=== PATIENT | male | born 1980 | race American Indian/Alaskan Native ===

== ENCOUNTER 2018-09-11 14:09 | Emergency (ER) | payer SELFPAY ==
[2018-09-11 14:33] VITALS: BP 150/82
--- NOTE | 2018-09-11 14:34 | Emergency Department Report ---
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 Due to findings the following was ordered: ED Disposition for MSE Condition: Stable
--- NOTE | 2018-09-11 15:07 | Emergency Department Report ---
Minor Respiratory - HPI Chief Complaint: Upper Respiratory Infection Stated Complaint: FLU SYMPTOMS Time Seen by Provider: 09/11/18 14:34 Duration: Today (body aches conditions who) Pain Location: Other (body aches) Severity: moderate (5/10) Minor Respiratory: Yes Rhinorrhea (nasal congestion), Yes Able to Tolerate Fluids, Yes Cough (dry cough), No Sore Throat, No Ear Pain, No Sick Contacts, No Hemoptysis, No Chest Pain, No Shortness of Breath, No Fever (chills) Other History: This is a 38-year-old male here report that he is having body ac hes, nasal congestion and chills times one week and symptoms have been worsening over the last 2 days. No [id number] medication taken. 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 Denies any nausea vomiting, shortness of breath or chest pain. Pain is achy and intermittent and no alleviating or exacerbating factors ED Review of Systems ROS: Stated complaint: FLU SYMPTOMS Other details as noted in HPI Constitutional: chills Eyes: denies: eye discharge ENT: congestion. denies: ear pain, throat pain, epistaxis Respiratory: cough. denies: shortness of breath, wheezing Cardiovascular: denies: chest pain, palpitations, edema, syncope Gastrointestinal: denies: abdominal pain, nausea, vomiting Skin: denies: rash Neurological: denies: headache ED Past Medical Hx - Past Medical History Previous Medical History?: No - Surgical History Past Surgical History?: No - Family History Family history: hypertension - Social History Smoking Status: Current Every Day Smoker Substance Use Type: Alcohol - Medications Home Medications: Home Medications Medication Instructions Recorded Confirmed Last Taken Type Amoxicillin/K Clav Tab [Augmentin 1 tab PO Q12HR #20 tab 09/11/18 Unknown Rx 875MG TAB] Cetirizine HCl [ZyrTEC] 10 mg PO QAM 14 Days #14 capsule 09/11/18 Unknown Rx Fluticasone [Flonase] 1 spray NS QDAY 14 Days #1 bottle 09/11/18 Unknown Rx Ibuprofen [Motrin] 800 mg PO Q8HR PRN #12 tablet 09/11/18 Unknown Rx methylPREDNISolone [Medrol Dose 4 mg PO DAILY #1 tab.ds.pk 09/11/18 Unknown Rx Angel] Minor Respiratory Exam - Exam General: Vital signs noted. No distress. Alert and acting appropriately. HEENT: Yes Moist Mucous Membranes (uvula midline abdomen he was patent), Yes Rhinorrhea (congested with erythema and clear drainage), No Pharyngeal Erythema, No Pharyngeal Exudates, No Conjuctival Injection, No Frontal Tenderness, No Maxillary Tenderness Ear: Neither TM Bulge (bilateral TM congested), Neither TM Erythema, Neither EAC Pain, Neither EAC Discharge Neck: Yes Supple (full range of motion and no C-spine tenderness), No Adenopathy Lungs: Yes Good Air Exchange, Yes Wheezes, Yes Cough (dry cough), No Ronchi, No Stridor, No Labored Respirations, No Retractions, No Use of Accessory Muscles, No Other Abnormal Lung Sounds Heart: Yes Regular (tachycardic at 107), No Murmur Abdomen: Yes Normal Bowel Sounds (in all quadrants), No Tenderness (nontender profit in all quadrants) Skin: No Rash, No Edema Neurologic: Alert and oriented 3, no deficits. Musculoskeletal: Unremarkable. No cce. + 2 pulses in all extremities, no neurovascular compromise ED Course Vital Signs 09/11/18 14:31 Temperature 97.9 F Pulse Rate 107 H Respiratory 18 Rate Blood Pressure 150/82 O2 Sat by Pulse 99 Oximetry Vital Signs 09/11/18 09/11/18 14:31 15:11 Temperature 97.9 F Pulse Rate 107 H 88 Respiratory 18 Rate Blood Pressure 150/82 O2 Sat by Pulse 99 Oximetry - Reevaluation(s) Reevaluation #1: 09/11/18 15:12 Patient stable throughout ED course with no complaints. ED Medical Decision Making - Medical Decision Making This is a 38-year-old male patient here for cough and cold symptoms. Patient found to have acute sinusitis. Patient had influenza A and B done. I discussed with patient his diagnosis and treatment plan he was understanding. Patient discharged from the ED in stable condition. Photosensitivity is afebrile and given prescription for Zyrtec, Flonase, Augmentin, Medrol Dosepak and ibuprofen. Critical care attestation.: If time is entered above; I have spent that time in minutes in the direct care of this critically ill patient, excluding procedure time. ED Disposition Clinical Impression: Cough in adult patient Acute sinusitis Qualifiers: Sinusitis location: unspecified location Recurrence: not specified as recurrent Qualified Code(s): J01.90 - Acute sinusitis, unspecified Disposition: DC-01 TO HOME OR SELFCARE Is pt being admited?: No Does the pt Need Aspirin: No Condition: Stable Instructions: Sinusitis (ED), Acute Cough (ED) Additional Instructions: Please take antibiotic as prescribed Follow-up with primary care physician in 3 days Take Motrin as prescribed for pain but take with food as can cause irritation to stomach lining Take Zyrtec and Flonase for congestion. If your condition worsens to include difficulty breathing, swallowing, chest pain, nausea and vomiting and fever does not relief with Motrin please return to the emergency room TESS. Gargle with warm salt water and this will help to relieve sore throat Prescriptions: Amoxicillin/K Clav Tab [Augmentin 875MG TAB] 1 tab PO Q12HR #20 tab Cetirizine HCl [ZyrTEC] 10 mg PO QAM 14 Days #14 capsule Fluticasone [Flonase] 1 spray NS QDAY 14 Days #1 bottle Ibuprofen [Motrin] 800 mg PO Q8HR PRN #12 tablet PRN Reason: pain methylPREDNISolone [Medrol Dose Angel] 4 mg PO DAILY #1 tab.ds.pk Referrals: [facility] [Outside] - 3-5 Days Forms: Work/School Release Form(ED)
== END 2018-09-11 15:27 | disposition home or self-care (01) ==
LOC: ED 14:09
DX: J01.90 Acute sinusitis, unspecified (principal); F17.200 Nicotine dependence, unspecified, uncomplicated
CPT/HCPCS: 87400

== ENCOUNTER 2021-06-23 23:32 | Emergency (ER) | payer SELFPAY ==
[2021-06-23 23:43] VITALS: BP 130/91
[2021-06-24] MEDS ORDERED: IBUPROFEN 600 MG TAB PO ONE (00:30)
[2021-06-24] MEDS ORDERED: ONDANSETRON 4 MG ODT TAB PO ONE (00:30)
[2021-06-24] MEDS ORDERED: BUTALB/ACETAMINOPHEN/CAFFEINE TAB PO ONE (00:30)
--- NOTE | 2021-06-24 01:23 | Cat Scan Report ---
CT HEAD WITHOUT CONTRAST INDICATION / CLINICAL INFORMATION: headache. TECHNIQUE: All CT scans at this location are performed using CT dose reduction for ALARA by means of automated exposure control. COMPARISON: None available. FINDINGS: BRAIN PARENCHYMA: No acute intracranial hemorrhage. No evidence of recent infarct. No mass effect or midline shift. VENTRICULAR SYSTEM/EXTRA-AXIAL SPACES: Ventricles are normal for age. No extra-axial fluid collection . ORBITS: Normal as visualized. SKELETAL SYSTEM/SOFT TISSUES: Normal bones and soft tissues. PARANASAL SINUSES/MASTOID AIR CELLS: No significant abnormality. ADDITIONAL FINDINGS: None. IMPRESSION: 1. No acute intracranial abnormality. Signer Name: Germán Lind MD Signed: 06/24/2021 1:19 AM Workstation Name: [id number]
--- NOTE | 2021-06-24 01:34 | Emergency Department Report ---
ED Headache HPI - General Chief Complaint: Headache Stated Complaint: HEADACHES Source: patient - History of Present Illness Initial Comments: Patient is a 41-year-old -[place] male with no past medical history presents to the ED with complaint of acute onset persistent severe right temporal headache with nausea and vomiting for the last 1 week, worse in the last 2 days. Patient states that the headache has been intermittent but severe when present. Patient states that when present he also experiences persistent nausea and vomiting. Patient denies dizziness, syncope, traumatic injury, fall, change in vision, neck pain, chest pain, shortness of breath, fever and chills, nasal and sinus congestion. Timing/Duration: 1 week Quality: severe, sharp Head Injury Location: temporal (Right temporal) Recent Head Trauma: chronic headaches Associated Symptoms: denies symptoms, nausea/vomiting. denies: confusion, fatigue, facial pain, fever/chills, flushing, loss of consciousness, nasal congestion, nasal drainage, numbness in legs/feet, seizures, sinus infection, stiff neck, vision changes, weakness, other Allergies/Adverse Reactions: Allergies No Known Allergies Allergy (Unverified 09/11/18 14:12) Home Medications: Ambulatory Orders Amoxicillin/K Clav Tab [Augmentin 875MG TAB] 1 tab PO Q12HR #20 tab 09/11/18 Cetirizine HCl [ZyrTEC] 10 mg PO QAM 14 Days #14 capsule 09/11/18 Fluticasone [Flonase] 1 spray NS QDAY 14 Days #1 bottle 09/11/18 methylPREDNISolone [Medrol Dose Angel] 4 mg PO DAILY #1 tab.ds.pk 09/11/18 Butalb/Acetamin/Caff 50-325-40 [Fioricet 50-325-40] 1 - 2 tab PO Q6HR PRN #15 tab 06/24/21 Ibuprofen [Motrin 800 MG tab] 800 mg PO Q8HR PRN #30 tablet 06/24/21 Promethazine [Phenergan] 25 mg PO Q8HR PRN #30 tab 06/24/21 ED Review of Systems ROS: Stated complaint: HEADACHES Other details as noted in HPI Constitutional: denies: chills, fever Eyes: denies: eye pain, eye discharge, vision change ENT: denies: ear pain, throat pain Respiratory: denies: cough, shortness of breath, wheezing Cardiovascular: denies: chest pain, palpitations Endocrine: no symptoms reported Gastrointestinal: nausea, vomiting. denies: abdominal pain, diarrhea Genitourinary: denies: urgency, dysuria Musculoskeletal: denies: back pain, joint swelling, arthralgia Skin: denies: rash, lesions Neurological: headache (Right temporal headache). denies: weakness, paresthesias Psychiatric: denies: anxiety, depression Hematological/Lymphatic: denies: easy bleeding, easy bruising ED Past Medical Hx - Past Medical History Previous Medical History?: No - Surgical History Past Surgical History?: No - Social History Smoking Status: Never Smoker Substance Use Type: None - Medications Home Medications: Home Medications Medication Instructions Recorded Confirmed Last Taken Type Amoxicillin/K Clav Tab [Augmentin 1 tab PO Q12HR #20 tab 09/11/18 Unknown Rx 875MG TAB] Cetirizine HCl [ZyrTEC] 10 mg PO QAM 14 Days #14 capsule 09/11/18 Unknown Rx Fluticasone [Flonase] 1 spray NS QDAY 14 Days #1 bottle 09/11/18 Unknown Rx methylPREDNISolone [Medrol Dose 4 mg PO DAILY #1 tab.ds.pk 09/11/18 Unknown Rx Angel] Butalb/Acetamin/Caff 50-325-40 1 - 2 tab PO Q6HR PRN #15 tab 06/24/21 Unknown Rx [Fioricet 50-325-40] Ibuprofen [Motrin 800 MG tab] 800 mg PO Q8HR PRN #30 tablet 06/24/21 Unknown Rx Promethazine [Phenergan] 25 mg PO Q8HR PRN #30 tab 06/24/21 Unknown Rx ED Physical Exam - General Limitations: No Limitations General appearance: alert, in no apparent distress - Head Head exam: Present: atraumatic, normocephalic, normal inspection - Eye Eye exam: Present: normal appearance, PERRL, EOMI Pupils: Present: normal accommodation - ENT ENT exam: Present: normal exam, normal orophraynx, mucous membranes moist, TM's normal bilaterally, normal external ear exam - Neck Neck exam: Present: normal inspection, full ROM - Respiratory Respiratory exam: Present: normal lung sounds bilaterally. Absent: respiratory distress, wheezes, rales, rhonchi, chest wall tenderness, accessory muscle use, decreased breath sounds, prolonged expiratory - Cardiovascular Cardiovascular Exam: Present: regular rate, normal rhythm, normal heart sounds. Absent: systolic murmur, diastolic murmur, rubs, gallop - GI/Abdominal GI/Abdominal exam: Present: soft, normal bowel sounds. Absent: tenderness, guarding, rebound, hyperactive bowel sounds, hypoactive bowel sounds, mass - Extremities Exam Extremities exam: Present: normal inspection, full ROM, normal capillary refill - Back Exam Back exam: Present: normal inspection, full ROM. Absent: tenderness, CVA tenderness (R), CVA tenderness (L), muscle spasm, paraspinal tenderness, vertebral tenderness - Neurological Exam Neurological exam: Present: alert, oriented X3, CN II-XII intact, normal gait, reflexes normal - Psychiatric Psychiatric exam: Present: normal affect, normal mood - Skin Skin exam: Present: warm, dry, intact, normal color. Absent: rash ED Course Vital Signs 06/23/21 23:36 Temperature 98.6 F Pulse Rate 93 H Respiratory 18 Rate Blood Pressure 130/91 O2 Sat by Pulse 97 Oximetry ED Medical Decision Making - Radiology Data The head CT scan without contrast showed no acute intracranial abnormalities or hemorrhage. - Medical Decision Making This is a 41-year-old -[place] male with no past medical history presents to the ED with complaint of acute onset persistent severe right temporal headache with nausea and vomiting for the last 1 week, worse in the last 2 days. Patient states that the headache has been intermittent but severe when present. Patient states that when present he also experiences persistent nausea and vomiting. In the ED, patient is alert and oriented x3 and is not in any distress but appears to be in pain. Patient is hemodynamically stable. The head CT scan without contrast showed no acute intracranial abnormalities or hemorrhage. - Differential Diagnosis Sinus headache; tension headache; cluster headache; migraine headache; Critical care attestation.: If time is entered above; I have spent that time in minutes in the direct care of this critically ill patient, excluding procedure time. ED Disposition Clinical Impression: Nausea and vomiting in adult Tension type headache, unspecified Qualifiers: Headache chronicity pattern: acute headache Intractability: not intractable Qu alified Code(s): G44.209 - Tension-type headache, unspecified, not intractable Disposition: 01 HOME / SELF CARE / HOMELESS Is pt being admited?: No Does the pt Need Aspirin: No Condition: Stable Instructions: Nausea and Vomiting, Adult, [id number], General Headache Without Cause, [id number], Tension Headache, Adult, [id number] Additional Instructions: The head CT scan without contrast showed no acute intracranial abnormalities or hemorrhage. Therefore take medications with food, drink plenty of fluids and follow-up with your primary care physician in 7 to 10 days for reevaluation or return to the ED immediately if your symptoms get worse. Prescriptions: Butalb/Acetamin/Caff 50-325-40 [Fioricet 50-325-40] 1 - 2 tab PO Q6HR PRN #15 tab PRN Reason: Headache Ibuprofen [Motrin 800 MG tab] 800 mg PO Q8HR PRN #30 tablet PRN Reason: pain Promethazine [Phenergan] 25 mg PO Q8HR PRN #30 tab PRN Reason: Nausea Referrals: [facility] [Provider Group] - 7-10 days Time of Disposition: 01:34 Print Language: FRENCH
== END 2021-06-24 02:14 | disposition home or self-care (01) ==
LOC: ED 23:32
DX: G44.209 Tension-type headache, unspecified, not intractable (principal); R11.2 Nausea with vomiting, unspecified; Z79.899 Other long term (current) drug therapy
CPT/HCPCS: 70450; 99283; J3490; Q0162